=== PATIENT | female | born 1960 | race Caucasian/White ===

== ENCOUNTER → 2025-04-08 13:35 | Outpatient (REF) | payer OTHER, SELFPAY | LOC: WDC 13:35 | PROVIDERS: ATTENDING PHYSICIAN Family Medicine | DX: Z12.39 Encounter for other screening for malignant neoplasm of breast (principal); M85.80 Other specified disorders of bone density and structure, unspecified site; Z12.31 Encounter for screening mammogram for malignant neoplasm of breast | CPT/HCPCS: 77063; 77067; 77080 ==